=== PATIENT | male | born 1985 | race Caucasian/White ===

== ENCOUNTER 2021-08-11 12:47 | Emergency (ER) | payer SELFPAY ==
[2021-08-11 13:38] VITALS: BP 139/90; PULSE 59; RESP 16; TEMP 36.8; O2SAT 99; BMI 32.2
--- NOTE | 2021-08-11 13:41 | HMH.EDUTC ---
[facility] [place] Disposition Clinical Impression: Abdominal pain Qualifiers: Abdominal location: generalized Qualified Code(s): R10.84 - Generalized abdominal pain Nausea and vomiting Qualifiers: Vomiting type: unspecified Qualified Code(s): R11.2 - Nausea with vomiting, unspecified Disposition: Still a Patient Condition on Discharge: Fair Referrals: Provider,Referral, [Primary Care Provider] - Medical Decision Making - Medical Records Medical records reviewed: No: I reviewed the patient's medical records. - Jarrod Inquiry Pt receiving controlled substance: No Vital Signs: 08/11/21 13:38 Temperature 98.3 F Temperature Source Oral Pulse Rate [Left] 59 L Respiratory Rate 16 Blood Pressure [Right Arm] 139/90 Blood Pressure Mean [Right Arm] 106 02 Sat by Pulse Oximetry 99 - Lab Data Lab results reviewed: Yes: I reviewed the patient's lab results. Lab Results 08/11/21 15:10: WBC 7.4, RBC 5.65, Hgb 16.1, Hct 48.7, MCV 86.2, MCH 28.5, MCHC 33.0, RDW 13.2, Plt Count 337, MPV 8.8, Neut % (Auto) 44.4, Lymph % (Auto) 45.5, [place] % (Auto) 7.0, Eos % (Auto) 2.0, Baso % (Auto) 1.2, Neut # (Auto) 3.3, Lymph # (Auto) 3.4, [place]ney # (Auto) 0.5, Eos # (Auto) 0.2, Baso # (Auto) 0.1 08/11/21 15:10: Sodium 140, Potassium 4.0, Chloride 102, Carbon Dioxide 29, Anion Gap 13.0, BUN 12, Creatinine 0.70, Estimated Creat Clear 202, Estimated GFR 129, Est GFR ( Amer) 156, Glucose 98, Calcium 9.3, Total Bilirubin 0.9, AST 41, ALT 68, Alkaline Phosphatase 64, Total Protein 8.6 H, Albumin 5.0, Globulin 3.6 H, Albumin/Globulin Ratio 1.4, Amylase 90, Lipase 58 Result diagrams: 08/11/21 15:10 08/11/21 15:10 Medical Decision Narrative: He was transferred to the ER due to his abdominal pain and abdominal tenderness. [facility] [place] HPI - General Stated complaint: vomiting, stomach pain, dizzy Time Seen by Provider: 08/11/21 15:41 - History of Present Illness Provider Complaint: He states that he started feeling kind of bad yesterday evening. He had some dizziness and nausea. He finished his work and went home. Through the evening he continued to feel dizzy at times and he continued to have nausea and some abdominal pain just above his navel. At around 0400 this am, he started to have n/v. He vomited multiple times after that. He states that it looked like there was blood in his vomitus. He denies any history of doing this before. He denies any known history of ulcers. He denies any diarrhea. He continues to have abdominal pain and nausea. He has had a decreased appetite today also. - Related Data Allergies Allergy/AdvReac Type Severity Reaction Status Date / Time No Known Allergies Allergy Verified 08/11/21 13:37 [facility] History - Hepatitis A Screen Attestation statement:: This patient has been screened for Hepatitis A risk factors. I have reviewed the patient's past medical history: Yes ROS Obtained: Yes All systems reviewed & no additional complaints - Constitutional Constitutional: Denies body ache, Denies chills, Denies fever(s), Reports poor appetite, Reports malaise - Eyes Eyes: Denies eye discharge - ENT Ears, Nose, Mouth, and Throat: Denies dizziness, Denies otalgia, Denies sore throat - Cardiovascular Cardiovascular: Denies chest pain - Respiratory Respiratory: Denies chest congestion, Denies cough, Denies dyspnea, Denies stridor, Denies wheezing - Gastrointestinal Gastrointestingal: Reports: as per HPI, abdominal pain, vomiting blood, nausea, vomiting. Denies: constipation, cramping, diarrhea - Genitourinary Male Genitourinary: Denies difficulty urinating, Denies urinary frequency, Denies urinary hesitancy - Musculoskeletal Musculoskeletal: Denies joint pain, Denies back pain, Denies neck pain - Integumentary/Breasts Skin/Breast: Denies rash Physical Exam - General General appearance: alert, in no apparent distress - Head Head exam: atraumatic, normocephalic, normal inspection - Eye Eye exa
[2021-08-11 15:26] LABS: Basophils # 0.1 K/mm3 (0-0.2); Basophils % 1.2 % (0.1-2.0); Eosinophils # 0.2 K/mm3 (0.0-0.4); Hematocrit 48.7 % (42.0-52.0); Hemoglobin 16.1 g/dL (14.1-18.0); Lymphocytes # 3.4 K/mm3 (0.7-4.5); Lymphocytes % 45.5 % (10-50); Mean Corpuscular Hemoglobin 28.5 pg (27.0-31.2); Mean Corpuscular Volume 86.2 fl (80-94); Mean Platelet Volume 8.8 fl (7.4-10.4); Monocytes # 0.5 K/mm3 (0.1-1.0); Neutrophils # 3.3 K/mm3 (1.8-7.8); Neutrophils % 44.4 % (37.0-80.0); Platelet Count 337 K/mm3 (142-424); Red Blood Count 5.65 M/mm3 (4.60-6.20); Red Cell Distribution Width 13.2 % (11.5-17.5); White Blood Count 7.4 K/mm3 (4.8-10.8)
[2021-08-11 15:31] LABS: Alanine Aminotransferase 68 U/L (12-78); Albumin/Globulin Ratio 1.4 (1.1-1.8); Alkaline Phosphatase 64 U/L (38-126); Amylase 90 U/L (30-110); Aspartate Amino Transferase 41 U/L (17-59); Bilirubin,Total 0.9 mg/dl (0.2-1.3); Blood Urea Nitrogen 12 mg/dl (9-20); Calcium 9.3 mg/dl (8.4-10.2); Carbon Dioxide 29 mmol/L (22.0-30.0); Chloride 102 mmol/L (98-107); Creatinine Clearance Estimated 202 mL/min (50-200); Estimated Glomerular Filt Rate 129 ml/min (>60); GFR (African American) 156 ML/MIN (>60); Globulin 3.6 g/dL (1.3-3.2); Glucose 98 mg/dl (74-100); Lipase 58 U/L (23-300); Sodium 140 mmol/L (136-145); Total Protein,Serum 8.6 g/dl (6.3-8.2)
--- NOTE | 2021-08-11 16:03 | HMH.EDGENADL ---
ED Disposition Clinical Impression: Abdominal pain Qualifiers: Abdominal location: generalized Qualified Code(s): R10.84 - Generalized abdominal pain Nausea and vomiting Qualifiers: Vomiting type: unspecified Qualified Code(s): R11.2 - Nausea with vomiting, unspecified Disposition: Home, Self-Care Condition on Discharge: Good Instructions: DI for Acute Abdominal Pain Additional Instructions: Pepcid and Zofran as prescribed. You are being provided with a list of physicians available for follow-up of your condition. Please call a physician on this list to arrange a follow-up appointment as soon as possible. Additional instructions for ABDOMINAL PAIN: See your physician as soon as possible for further evaluation. Return immediately if worsening abdominal pain, vomiting, shortness of breath, fever, vomiting of blood or abdominal distention. Prescriptions: Famotidine [Pepcid 20mg Tablet] 20 mg PO BID 5 Days #10 tab Transmission Status: Pending to [id number] Ondansetron [Zofran 4mg ODT] 4 mg PO TIDP PRN #10 tab PRN Reason: Nausea And Vomiting Transmission Status: Pending to [id number] Referrals: Provider,Referral, [Primary Care Provider] - - Critical Care Critical Care Time: No Attestation: On 08/11/21, the high probability of a clinically significant, sudden or life threatening deterioration of the following system(s) required my full and direct attention, intervention and personal management. The time I documented below is in addition to time spent performing reported procedures but includes the following listed in this critical care notation. Medical Decision Making - Jarrod Inquiry Pt receiving controlled substance: No Vital Signs: 08/11/21 13:38 08/11/21 16:07 Temperature 98.3 F 98 F Temperature Source Oral Oral Pulse Rate [Left] 59 L 70 Respiratory Rate 16 16 Blood Pressure [Right Arm] 139/90 148/88 H Blood Pressure Mean [Right Arm] 106 108 02 Sat by Pulse Oximetry 99 98 Oxygen Delivery Method Room Air - Lab Data Lab Results 08/11/21 15:10: WBC 7.4, RBC 5.65, Hgb 16.1, Hct 48.7, MCV 86.2, MCH 28.5, MCHC 33.0, RDW 13.2, Plt Count 337, MPV 8.8, Neut % (Auto) 44.4, Lymph % (Auto) 45.5, [place] % (Auto) 7.0, Eos % (Auto) 2.0, Baso % (Auto) 1.2, Neut # (Auto) 3.3, Lymph # (Auto) 3.4, [place] # (Auto) 0.5, Eos # (Auto) 0.2, Baso # (Auto) 0.1 08/11/21 15:10: Sodium 140, Potassium 4.0, Chloride 102, Carbon Dioxide 29, Anion Gap 13.0, BUN 12, Creatinine 0.70, Estimated Creat Clear 202, Estimated GFR 129, Est GFR ( Amer) 156, Glucose 98, Calcium 9.3, Total Bilirubin 0.9, AST 41, ALT 68, Alkaline Phosphatase 64, Total Protein 8.6 H, Albumin 5.0, Globulin 3.6 H, Albumin/Globulin Ratio 1.4, Amylase 90, Lipase 58 Result diagrams: 08/11/21 15:10 08/11/21 15:10 Medical Decision Narrative: Patient symptoms are almost 100% completely resolved and he has an unremarkable examination and normal laboratories. I do not feel further evaluation is needed. I do not feel CT scanning or other imaging is indicated. Symptoms most consistent with gastritis or peptic ulcer disease. General Adult HPI - General Stated complaint: vomiting, stomach pain, dizzy Time Seen by Provider: 08/11/21 16:03 Mode of Arrival: Ambulatory Source of Information: Patient Limitations: No Limitations - History of Present Illness HPI narrative: The patient is sent from the urgent treatment center. He speaks Amharic, diagnostic tech used via computer tablet diagnostic tech service. States that he began vomiting at 4 AM and had epigastric pain. Vomited several times. No longer nauseated. Says that his vomit at one point contained at tiny amount of blood. No diarrhea, melena, hematochezia, constipation. No fever. No urinary symptoms. He says that now his pain is almost completely gone. Denies having previous similar pain. No history of abdominal surgeries. He is a smoker. He drinks alcohol
[2021-08-11 16:07] VITALS: BP 148/88; PULSE 70; RESP 16; TEMP 36.6; O2SAT 98; BMI 32.1
[2021-08-11 16:46] VITALS: BP 125/74; PULSE 78; RESP 16; TEMP 36.6; O2SAT 98
== END 2021-08-11 16:48 | disposition home or self-care (01) ==
LOC: UTC 15:45 → ER 15:46
PROVIDERS: Nurse Practitioner Family; Emergency Provider Emergency Medicine
DX: R10.84 Generalized abdominal pain (principal); F17.210 Nicotine dependence, cigarettes, uncomplicated
CPT/HCPCS: 36415; 80053; 82150; 83690; 85025; 96365; 99282

== ENCOUNTER 2024-05-19 16:20 | Emergency (ER) | payer SELFPAY ==
[2024-05-19 16:40] VITALS: BP 137/80; PULSE 62; RESP 21; TEMP 36.5; O2SAT 100; BMI 31.4
--- NOTE | 2024-05-19 17:22 | EXP.UTC ---
Discharge Plan Disposition Patient Disposition: Home, Self-Care Condition: Good Prescriptions Prescriptions: New doxycycline hyclate 100 mg capsule 100 mg PO Q12 10 Days Qty: 20 0RF Referrals Follow up/Referrals: Provider,Referral, MD [Primary Care Provider] - See instructions Activity Restrictions/Add. Instructions Additional Instructions/Restrictions: Drink plenty of fluids. Take tylenol or ibuprofen for pain or fever. Take the medications as directed. Follow up with your regular doctor. GO TO THE ER FOR ANY WORSENING SYMPTOMS We will culture the urine. That will tell what bacteria is causing your infection and which antibiotics will treat it best.This test takes 3 days to complete. (BOLIVIAN TRANSLATION) Isabela mucho l?quido. [place] Tylenol o ibuprofeno para el dolor o la fiebre. [place] los medicamentos seg?n las indicaciones. Realice un seguimiento con jeter m?dico habitual. VAYA A LA GRANT DE EMERGENCIAS SI LOS S?NTOMAS EMPEORARAN Haremos un cultivo de orina. Eso indicar? qu? bacteria est? causando jeter infecci?n y qu? antibi?ticos la tratar?n mejor. Esta prueba demora 3 d?as en completarse. Clinical Impressions Clinical Impression: UTI (urinary tract infection) Stand Alone Forms Stand Alone Forms: Work/School Release Instructions Patient Instructions: DI for Urinary Tract Infection (UTI), Doxycycline Print Language Print Language: Maltese Discharge ED Provider: Pilo Gibson [facility] [place] HPI General Stated complaint: stomach ache Mode of Arrival: Ambulatory Source of Information: Patient Limitations: No Limitations Time Seen by Provider: 05/19/24 17:22 Description of Symptoms (Recalled from Triage Doc. by RN): PATIENT C/O PAIN TO RLQ X 1 WEEK. PATIENT DENIES VOMITING OR DIARRHEA HEENT Symptoms (Recalled from RN notes): No Resp Symptoms (Recalled from RN notes): No Skin Symptoms (Recalled from RN notes): No MS Symptoms (Recalled from RN notes): No Functional Status (Recalled from RN notes): WNL Related Data Previous Rx's ?Medication ?Instructions ?Recorded doxycycline hyclate 100 mg capsule 100 mg PO Q12 10 days #20 caps 05/19/24 Allergies Allergy/AdvReac Type Severity Reaction Status Date / Time No Known Allergies Allergy Verified 08/11/21 13:37 Worker's Comp Is this a Worker's Comp case?: No [facility] Disclaimer: The information contained in this section may have been updated after the patient was seen, as this information can be updated by other users. Medical History (Updated 05/19/24 @ 19:35 by Pilo Gibson APRN) No significant past medical history Social History Smoking Status: Never smoker alcohol intake: never current occupational status: employed ROS Obtained: Yes All systems reviewed & no additional complaints except as documented Constitutional Constitutional: Denies chills, Denies fever(s) and Reports poor appetite ENT Ears, Nose, Mouth, and Throat: Denies dizziness and Denies sore throat Cardiovascular Cardiovascular: Denies dyspnea Respiratory Respiratory: Denies chest congestion, Denies cough and Denies dyspnea Gastrointestinal Gastrointestingal: Reports as per HPI; Denies abdominal pain Musculoskeletal Musculoskeletal: Denies arthralgias Integumentary/Breasts Skin/Breast: Denies rash Neurologic Neurologic: Denies dizziness Physical Exam General General appearance: alert and in no apparent distress Head Head exam: atraumatic and normocephalic Eye Eye exam: Present normal appearance, PERRL and EOMI ENT ENT exam: Present normal exam, normal oropharynx, mucous membranes moist, TM's normal bilaterally and normal external ear exam Neck Neck exam: Present normal inspection, full ROM and trachea midline; Absent tenderness, meningismus or lymphadenopathy Chest Chest inspection: Present normal inspection and symmetric chest wall rise; Absent tenderness, rash or abscess Respiratory Respiratory exam: Present normal lung sounds bilaterally; Absent respiratory distress, wheezes or stridor Cardiovascular Cardiovascular exam: Present regular rate and normal rhythm; Absent irregular rhythm, systolic murmur, diastolic murmur or JVD Abdominal Exam Abdominal exam: Present soft and normal bowel sounds; Absent distention, tenderness, guarding, rebound, rigidity, psoas sign, obturator sign, heel tap sign, Olivares's sign, Rovsing's sign or tenderness at McBurney's Point Extremities Exam Extremities exam: Present normal inspection and full ROM; Absent tenderness Back Exam Back exam: Present normal inspection and full ROM; Absent tenderness, CVA tenderness (R) or CVA tenderness (L) Neurological Exam Neurological exam: Present alert, oriented X3 and CN II-XII intact Psychiatric Psychiatric exam: Present normal affect and normal mood Skin Skin exam: Present warm, dry, intact and normal color Lymphatic Lymphatic Findings: no adenopathy Medical Decision Making Medical Records Medical records reviewed: No I reviewed the patient's medical records. Screening: Per USPSTF and CDC recommendations, given the prevalence of disease in our region, it is our hospital?s policy to screen for HIV and viral Hepatitis for all patients aged 18 and over and those with ongoing risk factors. Jarrod Inquiry Pt receiving controlled substance: No Vital Signs: 05/19/24 16:40 Temperature 97.7 F Temperature Source Oral Pulse Rate [Left Brachial] 62 Respiratory Rate 21 Blood Pressure [Left Arm] 137/80 Blood Pressure Mean [Left Arm] 99 Blood Pressure Source [Left Arm] Automatic Cuff Blood Pressure Position [Left Arm] Sitting 02 Sat by Pulse Oximetry 100 Oxygen Delivery Method Room Air Lab Data Lab results reviewed: Yes I reviewed the patient's lab results. 05/19/24 18:30 05/19/24 18:30
[2024-05-19 18:09] LABS: Apearance,Urine Clear (Clear); Color,Urine Yellow (Yellow); Glucose,Urine (UA) 500 (Negative); PH,Urine 5.5 (5.0-8.5); Protein,Urine 3+ (Negative); Specific Gravity, Urine 1.015 (1.005-1.030)
[2024-05-19 18:14] LABS: Bilirubin,Urine Negative (Negative); Blood, Urine Trace (Negative); Ketones,Urine Negative (Negative); UTC Leukocyte Esterase,Urine Negative (Negative); UTC Nitrate,Urine Negative (Negative); Urobilinogen,Urine 0.2 EU/dl (0.2)
[2024-05-19 18:53] LABS: Basophils # 0.2 K/mm3 (0-0.2); Basophils % 2.9 % (0.1-2.0); Eosinophils # 0.3 K/mm3 (0.0-0.4); Eosinophils % 3.1 % (0.1-12.0); Hematocrit 48.2 % (42.0-52.0); Hemoglobin 16.6 g/dL (14.1-18.0); Lymphocytes # 4.5 K/mm3 (0.7-4.5); Lymphocytes % 55.9 % (10-50); Mean Corpuscular HGB Conc 34.5 g/dL (31.8-35.4); Mean Corpuscular Hemoglobin 27.4 pg (27.0-31.2); Mean Corpuscular Volume 79.3 fl (80-94); Mean Platelet Volume 8.1 fl (7.4-10.4); Monocytes # 0.7 K/mm3 (0.1-1.0); Monocytes % 8.2 % (1.7-9.3); Neutrophils # 2.4 K/mm3 (1.8-7.8); Neutrophils % 29.9 % (37.0-80.0); Platelet Count 228 K/mm3 (142-424); Red Blood Count 6.08 M/mm3 (4.60-6.20); Red Cell Distribution Width 13.1 % (11.5-17.5)
[2024-05-19 18:55] LABS: Chloride 102 mmol/L (98-107); Potassium 4.3 mmoL/L (3.5-5.1); Sodium 138 mmol/L (136-145)
[2024-05-19 18:58] LABS: Anion Gap 12.3 mEq/L (5-15); Blood Urea Nitrogen 10 mg/dl (9-20); Calcium 9.2 mg/dl (8.4-10.2); Carbon Dioxide 28 mmol/L (22.0-30.0); Creatinine Clearance Estimated 219 mL/min (50-200); Estimated Glomerular Filt Rate 152 ml/min (>60); GFR (African American) 184 ML/MIN (>60); Glucose 176 mg/dl (74-100)
[2024-05-19 19:06] LABS: MANUAL DIFFERENTIAL MANUAL DIFFERENTIAL (MANUAL DIFF)
[2024-05-19 19:36] VITALS: BP 137/80; PULSE 62; RESP 21; TEMP 36.5; O2SAT 100
[2024-05-19 21:25] LABS: Eosinophils % 2 % (0-3); Lymphocytes % 67 % (10-50); Monocytes % 2 % (2-9); Neutrophils % 29 % (42-76); Total Cells Counted 100
[2024-05-19 21:26] LABS: Platelet Estimate Normal; RBC Morphology Normal
[2024-05-22 08:18] LABS: Neisseria gonorrhoeae, NAA Negative (Negative)
== END 2024-05-19 19:45 | disposition home or self-care (01) ==
PROVIDERS: Emergency Provider Nurse Practitioner Family
DX: N39.0 Urinary tract infection, site not specified (principal)
CPT/HCPCS: 80048; 81003; 85007; 85025; 85027; 87086; 87491; 87591; 99213; G0381